=== PATIENT | female | born 1995 | race Caucasian/White ===

== ENCOUNTER 2017-08-20 21:06 | Emergency (ER) | payer OTHER ==
[2017-08-20 21:24] VITALS: BP 139/94
[2017-08-20] MEDS ORDERED: NS 0.9% 500 ML* 500 ML IV ONE ×2 (21:38→22:30)
--- NOTE | 2017-08-20 21:44 | UC ---
Zuhair Flores Elizabeth, scribed for Blessing Burr MD on 08/20/17 at 2135 . Dizzy HPI HPI Summary: This patient is a 22 year old F presenting to [facility] with a chief complaint of dizziness since earlier this evening and approximately 17:30. 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 The patient notes that she felt like she was overheating while working. Pt with little po.The patient rates the pain 0/10 in severity. Symptoms aggravated by nothing. Symptoms alleviated by nothing. Patient reports decreased appetite, fatigue, blurry vision, difficulty walking and standing. Patient denies abdominal pain or diarrhea. The patient notes that she did not have much to eat or drink today but notes that she drank some water and had some chicken and vegetables a few hours ago. Patient has hx of anemia, anxiety, depression, and heart murmur. The patient takes Xanax PRN and Lexapro. The patient notes that she took Xanax at 10:00 today. The patient reports that she usually manages her anemia with control but she has not taken her control recently since her prescriptions are being sent from [place]. Pt's medications reviewed this visit - History Of Current Complaint Stated Complaint: DIZZINESS Hx Obtained From: Patient Hx Last Menstrual Period: now Onset/Duration: Sudden Onset, Lasting Hours, Still Present Timing: Hours Severity Currently: None Pain Intensity: 0 Pain Scale Used: 0-10 Numeric Character: Weak Aggravating Factor(s): Nothing Alleviating Factor(s): Nothing Associated Signs And Symptoms: Positive: Unsteady Gait, Visual Changes - blurry vision, Decreased Oral Intake, Change In Medication - not taking her control - Allergies/Home Medications Allergies/Adverse Reactions: Allergies Allergy/AdvReac Type Severity Reaction Status Date / Time No Known Allergies Allergy Verified 08/20/17 21:24 Home Medications: Home Medications Oxybutynin TAB* [Ditropan TAB*] 30 mg PO DAILY 08/20/17 [History Confirmed 08/20] PMH/Surg Hx/FS Hx/Imm Hx Previously Healthy: Yes Other Endocrine History: anemia Psychological History: Anxiety, Depression - Surgical History Surgical History: Yes Surgery Procedure, Year, and Place: wisdom teeth extraction - Family History Known Family History: Positive: Other - not applicable Family History: R & n/C - Social History Occupation: Employed Full-time - manager it training for [employer] Lives: Dormitory/Roommates Alcohol Use: Occasionally Substance Use Type: Marijuana Smoking Status (MU): Never Smoked Tobacco - Immunization History Most Recent Influenza Vaccination: never Most Recent Tetanus Shot: < 10 years Most Recent Pneumonia Vaccination: never Review of Systems Constitutional: Fatigue Eyes: Blurred Vision Respiratory: Negative Cardiovascular: Negative Gastrointestinal: Negative, Other - decreased appetite Musculoskeletal: Other: - difficulty walking and standing All Other Systems Reviewed And Are Negative: Yes Physical Exam - Summary Physical Exam Summary: Vital Signs Reviewed: Yes A+Ox3, tired appearing Eyes: Conjunctiva Clear, SATCY. EOM intact and full ENT: Hearing grossly normal TM x 2 clear, mmpasty, lips dry, uvula midline, no exudate, no erythema Neck: Positive: Supple Respiratory: Positive: No respiratory distress, No accessory muscle use + CTA throughout no w/r Cardiovascular: RRR nl s1, s2 no m/r CBT <2 sec abd soft + BS nt/nd no guarding, no distension Musculoskeletal Exam: MARTINEZ x 4 without difficulty Strength Intact, ROM Intact Pt ambulatory but with assistance Neurological: Positive: Alert, + sensation throughout Psychological: Positive: Normal Response To Family Skin: Positive: no rash, no ecchymosis Triage Information Reviewed: Yes Vital Signs: Initial Vital Signs Temp 99.0 F 08/20/17 21:18 Pulse 80 08/20/17 21:18 Resp 20 08/20/17 21:18 BP 139/94 08/20/17 21:18 Pulse Ox 100 08/20/17 21:18 Re-Evaluation - Re-Evaluation First Eval Re-Evaluation Time: 22:35 Change: Improved - Patient looking and feeling much better. Patient laughing and joking intermittently. Patient has drank a bottle water as well as oyster crackers and a hard candy. Patient indicated his nurse without assistance. Patient states she feels better but not 100%. Patient comfortable to go home. Discussed with patient that if symptoms change or worsen she should go to the emergency department for further evaluation. Comfortable in agreement with plan. Patient's friend will drive her home. Dizzy Course/Dx - Course Course Of Treatment: Patient presents reporting that she feels dizzy and lightheaded. Patient states she was outside all day and had little to eat. Patient states she is a little bit of nausea but no vomiting. Patient feels that she is somewhat dehydrated. Patient denies vision changes. No chest pain or shortness of breath. Patient states vital signs stable. Patient's blood sugar noted to be in nature. Patient with mild dehydration on exam. Patient is nontoxic-appearing. Will place an IV and give fluids. Will do an oral challenge. We'll check urine for infection and ketones. The patient does not improve after 1 L fluid anticipate we'll transfer patient to emergency department patient did not drive here came with colic. Patient comfortable in agreement with plan. - Differential Dx/Diagnosis Provider Diagnoses: Mild dehydration. Weakness improved Discharge - Sign-Out/Discharge Documenting (check all that apply): Discharge/Admit/Transfer - Discharge Plan Condition: Stable Disposition: HOME Discharge Disposition Comment: discharge home Patient Education Materials: Dehydration (ED), Weakness (ED) Referrals: [facility] [Outside] - If Needed No Primary Care Phys,NOPCP [Primary Care Provider] - Additional Instructions: - it is recommended you drink plenty of water, gatorade, and other electolyte solutions - Avoid alcohol and excess caffeine until you are feeling normal - Eat small, frequent snacks over the next several hours. If you continue to feel weak, develop numbess, ongoing vision changes or any other concerns it is recommended you go to the emergency department for further evaluation. - Billing Disposition and Condition Condition: STABLE Disposition: Home The documentation as recorded by the Zuhair reece Elizabeth accurately reflects the service I personally performed and the decisions made by me, Blessing Burr MD.
== END 2017-08-20 22:45 | disposition home or self-care (01) ==
LOC: UCEAST 21:06
DX: R42 Dizziness and giddiness (principal); E86.0 Dehydration; R53.1 Weakness; F41.8 Other specified anxiety disorders
CPT/HCPCS: 81003; 84702; 96360; 99201; G0463